=== PATIENT | female | born 1980 | race Caucasian/White ===

== ENCOUNTER → 2024-03-01 10:39 | Outpatient (REF) | payer BC, SELFPAY | LOC: CPAP 10:39 | PROVIDERS: ATTENDING PHYSICIAN Nurse Practitioner Family | DX: Z34.90 Encounter for supervision of normal pregnancy, unspecified, unspecified trimester (principal); Z12.4 Encounter for screening for malignant neoplasm of cervix; Z11.3 Encounter for screening for infections with a predominantly sexual mode of transmission; Z01.419 Encounter for gynecological examination (general) (routine) without abnormal findings | CPT/HCPCS: 87491; 87591; 87624; G0123 ==

== ENCOUNTER → 2024-03-15 11:19 | Outpatient (REF) | payer BC, SELFPAY | LOC: PNTC 11:19 | PROVIDERS: ATTENDING PHYSICIAN Obstetrics & Gynecology | DX: Z36.0 Encounter for antenatal screening for chromosomal anomalies (principal); Z36.82 Encounter for antenatal screening for nuchal translucency | CPT/HCPCS: 76801; 76813 ==

== ENCOUNTER → 2024-04-07 10:17 | Outpatient (REF) | payer BC, SELFPAY ==
[2024-04-07 11:50] LABS: % Basophils 0.3 % (0-2); % Eosinophils 2.4 % (0-6); % Immature Granulocytes 0.3 % (0-0.5); % Lymphocytes 18.8 % (20.5-51.1); % Monocytes 8.3 % (1.7-9.3); % Neutrophils 69.9 % (42.2-75.2); Absolute Eosinophils 0.2 10^3/uL (0-0.7); Absolute Lymphocytes 1.4 10^3/uL (1.2-3.4); Absolute Monocytes 0.6 10^3/uL (0.1-0.6); Hematocrit 35.7 % (37.0-47.0); Hemoglobin 11.9 g/dL (12.0-16.0); Mean Corp Hgb Conc. 33.3 g/dL (33.0-37.0); Mean Corpuscular Hgb 29.8 pg (27.0-31.0); Mean Corpuscular Volume 89.3 fL (81.0-99.0); Mean Platelet Volume 10.3 fL (7.4-10.4); Nucleated Red Blood Cells % 0 %; Platelet Count 233 10^3/uL (130-400); Red Cell Dist. Width 12.7 % (11.5-14.5); White Blood Cell Count 7.2 10^3/uL (4.8-10.8)
[2024-04-07 11:56] LABS: Urine Albumin Negative (Neg - Trace); Urine Bilirubin Negative (Negative); Urine Character Slightly Cloudy (Clear); Urine Color Yellow; Urine Glucose Negative (Negative); Urine Ketone Trace (Negative); Urine Leukocyte Trace (Negative); Urine Nitrite Negative (Negative); Urine Occult Blood Negative (Negative); Urine Urobilinogen Negative (Neg - 1+)
[2024-04-07 12:06] LABS: Urine Squamous Cell >30 /LPF (Few)
[2024-04-07 12:08] LABS: Urine Bacteria Few (Negative); Urine Red Blood Cell 0-2 /HPF (0-2); Urine White Cell 0-2 /HPF (0-5)
[2024-04-07 12:33] LABS: 1 Hour after 50gm 113 mg/dl
[2024-04-08 18:57] LABS: Hepatitis B Surface Antigen Negative (Negative)
[2024-04-08 19:15] LABS: Hepatitis C Antibody Negative (Negative)
[2024-04-08 19:35] LABS: Rubella Positive
[2024-04-09 14:39] LABS: Syphilis/T. pallidum Ab Reflex Negative (Negative)
== END ==
LOC: REG 10:17
PROVIDERS: ATTENDING PHYSICIAN Obstetrics & Gynecology; FAMILY PHYSICIAN Nurse Practitioner
DX: Z34.90 Encounter for supervision of normal pregnancy, unspecified, unspecified trimester (principal)
CPT/HCPCS: 36415; 80055; 81003; 81015; 82950; 86803; 86850; 86900; 86901; 87086

== ENCOUNTER → 2024-04-13 10:18 | Outpatient (REF) | payer BC, SELFPAY | LOC: PNTC 10:18 | PROVIDERS: ATTENDING PHYSICIAN Obstetrics & Gynecology | DX: Z31.83 Encounter for assisted reproductive fertility procedure cycle (principal); O99.210 Obesity complicating pregnancy, unspecified trimester; T43.22 Poisoning by, adverse effect of and underdosing of selective serotonin reuptake inhibitors | CPT/HCPCS: 76805 ==

== ENCOUNTER → 2024-05-27 09:33 | Outpatient (REF) | payer BC, SELFPAY ==
[2024-05-27 12:21] LABS: % Basophils 0.3 % (0-2); % Eosinophils 2.1 % (0-6); % Immature Granulocytes 0.9 % (0-0.5); % Lymphocytes 18.8 % (20.5-51.1); % Neutrophils 69.9 % (42.2-75.2); Absolute Eosinophils 0.2 10^3/uL (0-0.7); Absolute Immature Granulocytes 0.1 10^3/uL (0-0.05); Absolute Lymphocytes 1.7 10^3/uL (1.2-3.4); Absolute Monocytes 0.7 10^3/uL (0.1-0.6); Absolute Neutrophils 6.3 10^3/uL (1.4-6.5); Hematocrit 31.5 % (37.0-47.0); Hemoglobin 10.8 g/dL (12.0-16.0); Mean Corp Hgb Conc. 34.3 g/dL (33.0-37.0); Mean Corpuscular Hgb 30.3 pg (27.0-31.0); Mean Corpuscular Volume 88.2 fL (81.0-99.0); Mean Platelet Volume 10.8 fL (7.4-10.4); Nucleated Red Blood Cells % 0 %; Platelet Count 203 10^3/uL (130-400); Red Blood Cell Count 3.57 10^6/uL (4.20-5.40); Red Cell Dist. Width 13.2 % (11.5-14.5)
[2024-05-27 13:22] LABS: ALT (SGPT) < 10 U/L (0-35); AST (SGOT) 17 U/L (14-36); Albumin 3.4 g/dl (3.5-5.0); Alkaline Phosphatase 58 U/L (38-126); Blood Urea Nitrogen 7 mg/dl (7-17); Calcium 8.8 mg/dl (8.4-10.2); Carbon Dioxide 25 mmol/L (22-30); Chloride 107 mmol/L (98-107); Glucose 87 mg/dl (70-99); HDL Cholesterol 77 mg/dl; LDL Cholesterol, Calculated 168 mg/dl; Sodium 133 mmol/L (135-145); Total Bilirubin 0.4 mg/dl (0.2-1.3); Total Cholesterol 282 mg/dl (50-199); Total Protein 6.1 g/dl (6.3-8.2); Triglyceride 185 mg/dl (10-149); Very Low Density Lipoprotein 37 mg/dl (0-30); eGFR > 60.00
[2024-05-27 13:53] LABS: TSH Reflex To Free T4 2.16 uIU/ml (0.47-4.68)
[2024-05-30 10:11] LABS: AFP Multiple of Median (MoM) 0.66; Dating LMP CONF by US; Family Neural Tube Defect Hx No; Insulin Req Maternal Diabetes No; Maternal Age at Delivery 38.8 yr; Maternal Race Nonblack; Maternal Screen Interpretation Screen Neg; Maternal Weight 192.0 lbs.; Number of Fetuses Singleton; Patient's AFP Concentration 46 ng/mL; Smoking No
== END ==
LOC: HWLAB 09:33
PROVIDERS: ATTENDING PHYSICIAN Obstetrics & Gynecology; FAMILY PHYSICIAN Nurse Practitioner
DX: Z00.01 Encounter for general adult medical examination with abnormal findings (principal)
CPT/HCPCS: 36415; 80053; 80061; 82105; 84443; 85025

== ENCOUNTER → 2024-06-08 09:53 | Outpatient (REF) | payer BC, SELFPAY | LOC: PNTC 09:53 | PROVIDERS: ATTENDING PHYSICIAN Obstetrics & Gynecology | DX: O09.529 Supervision of elderly multigravida, unspecified trimester (principal); O09.819 Supervision of pregnancy resulting from assisted reproductive technology, unspecified trimester; O99.210 Obesity complicating pregnancy, unspecified trimester | CPT/HCPCS: 76816 ==

== ENCOUNTER → 2024-07-03 02:31 | Outpatient (REF) | payer BC, SELFPAY ==
[2024-07-03 05:43] LABS: Hematocrit 30.1 % (37.0-47.0); Hemoglobin 10.1 g/dL (12.0-16.0); Mean Corp Hgb Conc. 33.6 g/dL (33.0-37.0); Mean Corpuscular Hgb 29.6 pg (27.0-31.0); Mean Corpuscular Volume 88.3 fL (81.0-99.0); Platelet Count 204 10^3/uL (130-400); Red Blood Cell Count 3.41 10^6/uL (4.20-5.40); White Blood Cell Count 8.6 10^3/uL (4.8-10.8)
[2024-07-03 05:53] LABS: 1 Hour after 50gm 131 mg/dl
[2024-07-06 15:12] LABS: Syphilis/T. pallidum Ab Reflex Negative (Negative)
== END ==
LOC: REG 02:31
PROVIDERS: ATTENDING PHYSICIAN Obstetrics & Gynecology
DX: O09.522 Supervision of elderly multigravida, second trimester (principal)
CPT/HCPCS: 82950; 85027; 86780

== ENCOUNTER → 2024-07-06 11:56 | Outpatient (REF) | payer BC, SELFPAY | LOC: PNTC 11:56 | PROVIDERS: ATTENDING PHYSICIAN Obstetrics & Gynecology | DX: O99.210 Obesity complicating pregnancy, unspecified trimester (principal); O09.819 Supervision of pregnancy resulting from assisted reproductive technology, unspecified trimester; O09.519 Supervision of elderly primigravida, unspecified trimester; O99.320 Drug use complicating pregnancy, unspecified trimester | CPT/HCPCS: 76816 ==

== ENCOUNTER → 2024-08-03 09:58 | Outpatient (REF) | payer BC, SELFPAY | LOC: PNTC 09:58 | PROVIDERS: ATTENDING PHYSICIAN Obstetrics & Gynecology | DX: O09.519 Supervision of elderly primigravida, unspecified trimester (principal); O09.819 Supervision of pregnancy resulting from assisted reproductive technology, unspecified trimester; O99.210 Obesity complicating pregnancy, unspecified trimester; O99.320 Drug use complicating pregnancy, unspecified trimester | CPT/HCPCS: 76816 ==

== ENCOUNTER → 2024-08-17 10:35 | Outpatient (REF) | payer BC, SELFPAY | LOC: PNTC 10:35 | PROVIDERS: ATTENDING PHYSICIAN Obstetrics & Gynecology | DX: O09.519 Supervision of elderly primigravida, unspecified trimester (principal); O09.819 Supervision of pregnancy resulting from assisted reproductive technology, unspecified trimester; O99.210 Obesity complicating pregnancy, unspecified trimester; O99.320 Drug use complicating pregnancy, unspecified trimester | CPT/HCPCS: 59025; 76815 ==

== ENCOUNTER → 2024-08-24 09:49 | Outpatient (REF) | payer BC, SELFPAY | LOC: PNTC 09:49 | PROVIDERS: ATTENDING PHYSICIAN Obstetrics & Gynecology | DX: O09.519 Supervision of elderly primigravida, unspecified trimester (principal); O99.210 Obesity complicating pregnancy, unspecified trimester; O99.320 Drug use complicating pregnancy, unspecified trimester; O09.819 Supervision of pregnancy resulting from assisted reproductive technology, unspecified trimester | CPT/HCPCS: 76815 ==

== ENCOUNTER → 2024-08-31 09:40 | Outpatient (REF) | payer BC, SELFPAY | LOC: PNTC 09:40 | PROVIDERS: ATTENDING PHYSICIAN Obstetrics & Gynecology | DX: O09.519 Supervision of elderly primigravida, unspecified trimester (principal); O99.210 Obesity complicating pregnancy, unspecified trimester; O09.819 Supervision of pregnancy resulting from assisted reproductive technology, unspecified trimester; O99.320 Drug use complicating pregnancy, unspecified trimester | CPT/HCPCS: 59025; 76816 ==

== ENCOUNTER → 2024-09-02 10:47 | Outpatient (REF) | payer BC, SELFPAY | LOC: CPAP 10:47 | PROVIDERS: ATTENDING PHYSICIAN Obstetrics & Gynecology | DX: Z36.85 Encounter for antenatal screening for Streptococcus B (principal) | CPT/HCPCS: 87070 ==

== ENCOUNTER → 2024-09-07 10:05 | Outpatient (REF) | payer BC, SELFPAY | LOC: PNTC 10:05 | PROVIDERS: ATTENDING PHYSICIAN Obstetrics & Gynecology | DX: O09.529 Supervision of elderly multigravida, unspecified trimester (principal); O09.819 Supervision of pregnancy resulting from assisted reproductive technology, unspecified trimester; O99.210 Obesity complicating pregnancy, unspecified trimester; O35.5XX0 Maternal care for (suspected) damage to fetus by drugs, not applicable or unspecified | CPT/HCPCS: 59025; 76815 ==

== ENCOUNTER → 2024-09-13 12:18 | Outpatient (REF) | payer BC, SELFPAY | LOC: PNTC 12:18 | PROVIDERS: ATTENDING PHYSICIAN Obstetrics & Gynecology | DX: O09.519 Supervision of elderly primigravida, unspecified trimester (principal); O09.819 Supervision of pregnancy resulting from assisted reproductive technology, unspecified trimester; O99.210 Obesity complicating pregnancy, unspecified trimester; O99.320 Drug use complicating pregnancy, unspecified trimester | CPT/HCPCS: 59025; 76815 ==

== ENCOUNTER 2024-09-14 03:38 | Inpatient (IN) | payer BC, SELFPAY ==
[2024-09-14 03:58] VITALS: BMI 36.5
[2024-09-14] MEDS: LR 1000 IV ×2 (04:00→04:48)
[2024-09-14 04:17] LABS: Hematocrit 30.6 % (37.0-47.0); Hemoglobin 9.8 g/dL (12.0-16.0); Mean Corpuscular Hgb 25.7 pg (27.0-31.0); Mean Corpuscular Volume 80.3 fL (81.0-99.0); Mean Platelet Volume 11.3 fL (7.4-10.4); Platelet Count 205 10^3/uL (130-400); Red Blood Cell Count 3.81 10^6/uL (4.20-5.40); Red Cell Dist. Width 14.9 % (11.5-14.5)
[2024-09-14] MEDS: TYLENOL 1000 MG PO (04:58)
[2024-09-14] MEDS: BICITRA 30 ML PO (04:59)
[2024-09-14] MEDS: ANCEF 10 IV (05:00)
[2024-09-14] MEDS: ZITHROMAX INFUSION 250 IV (08:00)
[2024-09-14] MEDS: TORADOL 15 MG IV ×3 (08:05→19:43)
[2024-09-14] MEDS: PRENATAL PLUS PO (09:36)
[2024-09-14] MEDS: PITOCIN 30 UNITS/NSS 500 ML IV (10:15)
[2024-09-14] MEDS: FLUSH (NSS) 3 FLUSH IV (19:44)
[2024-09-14] MEDS: LEXAPRO 20 MG PO (21:57)
[2024-09-15] MEDS: TORADOL 15 MG IV ×2 (02:01→10:53)
[2024-09-15] MEDS: FLUSH (NSS) 3 FLUSH IV (02:03)
[2024-09-15] MEDS: TYLENOL 650 MG PO ×3 (05:16→21:13)
[2024-09-15 06:33] LABS: Hematocrit 21.9 % (37.0-47.0); Hemoglobin 6.9 g/dL (12.0-16.0); Mean Corp Hgb Conc. 31.5 g/dL (33.0-37.0); Mean Corpuscular Hgb 25.5 pg (27.0-31.0); Mean Corpuscular Volume 80.8 fL (81.0-99.0); Mean Platelet Volume 11.3 fL (7.4-10.4); Platelet Count 141 10^3/uL (130-400); Red Blood Cell Count 2.71 10^6/uL (4.20-5.40); Red Cell Dist. Width 15.2 % (11.5-14.5)
--- NOTE | 2024-09-15 07:15 | W.PN.ANS.POP ---
Anesthesia Post Operative
- Anesthesia Post Op Note
Vital Signs Stable-See Nursing Note: Yes
Airway Patent: Yes
Adequate Pain Control: Yes
Change in Mental Status: No
Current Postoperative Nausea & Vomiting: No
Anesthesia Complications: No
General Anesthetic Recall: No (n/a)
Unplanned Admission: No
Post Op Hydration Adequate: Yes
[2024-09-15 07:30] VITALS: BP 102/51
[2024-09-15 07:50] VITALS: BP 102/60
[2024-09-15] MEDS: SENOKOT-S 1 TABLET PO (08:33)
[2024-09-15] MEDS: PRENATAL PLUS 1 TABLET PO (08:33)
[2024-09-15 10:55] VITALS: BP 103/42
[2024-09-15] MEDS: MOTRIN 600 MG PO ×2 (15:43→22:07)
[2024-09-15 15:58] LABS: Hematocrit 26.1 % (37.0-47.0); Hemoglobin 8.6 g/dL (12.0-16.0); Mean Corpuscular Hgb 26.8 pg (27.0-31.0); Mean Corpuscular Volume 81.3 fL (81.0-99.0); Mean Platelet Volume 11.4 fL (7.4-10.4); Platelet Count 179 10^3/uL (130-400); Red Blood Cell Count 3.21 10^6/uL (4.20-5.40); Red Cell Dist. Width 15.2 % (11.5-14.5); White Blood Cell Count 11.1 10^3/uL (4.8-10.8)
[2024-09-15] MEDS: LEXAPRO 20 MG PO (21:14)
[2024-09-15] MEDS: MYLICON 80 MG PO (21:14)
[2024-09-16] MEDS: TYLENOL 650 MG PO ×2 (04:44→08:40)
[2024-09-16] MEDS: MOTRIN 600 MG PO (04:44)
[2024-09-16 05:03] LABS: Hematocrit 24.9 % (37.0-47.0); Mean Corp Hgb Conc. 32.1 g/dL (33.0-37.0); Mean Corpuscular Hgb 26.1 pg (27.0-31.0); Mean Corpuscular Volume 81.4 fL (81.0-99.0); Mean Platelet Volume 11.1 fL (7.4-10.4); Platelet Count 168 10^3/uL (130-400); Red Blood Cell Count 3.06 10^6/uL (4.20-5.40); Red Cell Dist. Width 15.4 % (11.5-14.5); White Blood Cell Count 8.9 10^3/uL (4.8-10.8)
[2024-09-16] MEDS: MYLICON 80 MG PO (08:40)
[2024-09-16] MEDS: SENOKOT-S 1 TABLET PO (08:41)
--- NOTE | 2024-09-16 14:12 | W.DS.TRANS ---
DC Summary - Linker Up
-
Discharge Instructions:
Discharge Diagnosis/Procedures section
Instructions:
Stand-Alone Forms: LDRP Delivery
Changes to Home Medications: No
Discharge Medications:
DC Medications w/original date entered in [employer]
escitalopram oxalate 20 mg tablet 20 mg PO HS Mental Health/Anxiety 03/22/22
vit no.95-ferrous fumarate 28 mg-folic acid 800 mcg tablet () 1 ea PO DAILY Supplement 03/22/22
acetaminophen 325 mg tablet 650 mg (2 x 325 mg) PO Q4HPRN PRN mild pain #0 tabs 09/16/24
calcium carbonate (Calcium Antacid) 400 mg (2 x 200 mg calcium (500 mg)) PO Q6HPRN PRN indigestion #0 tabs 09/16/24
ibuprofen 600 mg tablet 600 mg PO Q6HPRN PRN cramps #40 tabs 09/16/24
sennosides 8.6 mg-docusate sodium 50 mg tablet 1 tab PO DAILYPRN PRN constipation #0 tabs 09/16/24
simethicone 80 mg chewable tablet 80 mg PO TIDPRN PRN flatulence #0 tabs 09/16/24
Home Medication Changes
Pending Results: No
Total time spent discharging patient (in min): 20
[2024-09-17 12:22] LABS: Syphilis/T. pallidum Ab Reflex Negative (Negative)
== END 2024-09-16 13:56 | disposition home or self-care (01) | DRG 788 ==
LOC: LDRP 03:38
PROVIDERS: Student in an Organized Health Care Education/Training Program; ADMITTING PHYSICIAN Obstetrics & Gynecology
PROC: 10D00Z1 Extraction of Products of Conception, Low, Open Approach (ICD-10-PCS; 2024-09-14)
PROC: 30233N1 Transfusion of Nonautologous Red Blood Cells into Peripheral Vein, Percutaneous Approach (ICD-10-PCS; 2024-09-15)
DX: O34.211 Maternal care for low transverse scar from previous cesarean delivery (principal); N85.8 Other specified noninflammatory disorders of uterus; O77.0 Labor and delivery complicated by meconium in amniotic fluid; O34.13 Maternal care for benign tumor of corpus uteri, third trimester; D25.2 Subserosal leiomyoma of uterus; Z3A.38 38 weeks gestation of pregnancy; Z37.0 Single live birth
CPT/HCPCS: 88307; 36415; 85027; 86780; 86850; 86900; 86901; 86920; P9016

== ENCOUNTER → 2025-05-18 13:21 | Outpatient (REF) | payer BC, SELFPAY | LOC: WDC 13:21 | PROVIDERS: ATTENDING PHYSICIAN Obstetrics & Gynecology | DX: Z12.31 Encounter for screening mammogram for malignant neoplasm of breast (principal) | CPT/HCPCS: 77063; 77067 ==

== ENCOUNTER → 2025-05-25 11:12 | Outpatient (REF) | payer BC, SELFPAY ==
[2025-05-25 11:47] LABS: Hematocrit 41.7 % (37.0-47.0); Hemoglobin 13.7 g/dL (12.0-16.0); Mean Corp Hgb Conc. 32.9 g/dL (33.0-37.0); Mean Corpuscular Volume 86.5 fL (81.0-99.0); Nucleated Red Blood Cells % 0 %; Platelet Count 261 10^3/uL (130-400); Red Cell Dist. Width 12.9 % (11.5-14.5)
[2025-05-25 11:56] LABS: ALT (SGPT) 12 U/L (0-35); AST (SGOT) 18 U/L (14-36); Albumin 4.8 g/dl (3.5-5.0); Alkaline Phosphatase 54 U/L (38-126); Blood Urea Nitrogen 12 mg/dl (7-17); Calcium 9.2 mg/dl (8.4-10.2); Carbon Dioxide 25 mmol/L (22-30); Chloride 107 mmol/L (98-107); Glucose 95 mg/dl (70-99); HDL Cholesterol 61 mg/dl; LDL Cholesterol, Calculated 180 mg/dl; Potassium 4.0 mmol/L (3.5-5.1); Sodium 141 mmol/L (135-145); Total Protein 7.9 g/dl (6.3-8.2); Very Low Density Lipoprotein 24 mg/dl (0-30); eGFR > 60.00
== END ==
LOC: CLAB 11:12
DX: Z00.01 Encounter for general adult medical examination with abnormal findings (principal)
CPT/HCPCS: 80053; 80061; 84443; 85025

== ENCOUNTER 2025-06-26 22:04 | Emergency (ER) | payer BC, SELFPAY ==
[2025-06-26 22:07] VITALS: BP 116/60; BMI 33.2
[2025-06-26 22:34] LABS: Hematocrit 35.6 % (37.0-47.0); Hemoglobin 12.2 g/dL (12.0-16.0); Mean Corp Hgb Conc. 34.3 g/dL (33.0-37.0); Mean Corpuscular Volume 83.4 fL (81.0-99.0); Nucleated Red Blood Cells % 0 %; Platelet Count 220 10^3/uL (130-400); Red Cell Dist. Width 12.6 % (11.5-14.5)
[2025-06-26 22:52] LABS: ALT (SGPT) 26 U/L (0-35); AST (SGOT) 59 U/L (14-36); Albumin 4.2 g/dl (3.5-5.0); Alkaline Phosphatase 79 U/L (38-126); Blood Urea Nitrogen 13 mg/dl (7-17); Calcium 9.0 mg/dl (8.4-10.2); Carbon Dioxide 27 mmol/L (22-30); Chloride 107 mmol/L (98-107); Estimated Creatinine Clearance 105 ml/min; Glucose 108 mg/dl (70-99); Potassium 3.9 mmol/L (3.5-5.1); Sodium 138 mmol/L (135-145); Total Protein 6.8 g/dl (6.3-8.2); eGFR > 60.00
--- NOTE | 2025-06-27 00:03 | ED.GENMED ---
History of Present Illness
General
Chief Complaint: Flank Pain
Source: patient
Exam Limitations: none
Time Seen by Provider: 06/26/25 23:48
Nursing documentation reviewed up to this point in time: agreed with
History of Present Illness
History of Present Illness:
Note:
CHIEF COMPLAINT(S)
Abdominal pain.
HISTORY OF PRESENT ILLNESS
The patient is a 44-year-old female with no pmh who presenting with a complaint of abdominal pain. This has been going on intermittently for the past for months but became more prominent today. This pain began in the back and radiated around to the
front, causing a sensation of diaphragmatic constriction, impeding deep breaths. The patient reports a history of similar episodes previously described as muscle spasms, but today's episode was more severe, accompanied by sweating and a need to sit
down. 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 This episode started approximately one hour after consuming egg whites and turkey sausage. The patient feels well now and is not requesting any pain medication. The patients
family physician recommended an antacid previously, but this did not alleviate her upper abdominal pain. No history of kidney stones, bladder pain, or significant urinary symptoms. The patient reports an increase in discomfort post meals and
describes the pain as a dull ache has had intermittent epigastric discomfort. No fevers or chills. No nausea or vomiting. No significant changes in pain when pressure is applied or by changing position. No vomiting, leg swelling, or recent prolonged
travel by car or plane.
SOCIAL DETERMINANTS OF HEALTH
No smoking history
No daily NSAID use
PHYSICAL EXAM
General: Patient is well appearing and in no acute distress; non-toxic
Skin: Warm and dry, no rashes or lesions
Head: Normocephalic, atraumatic
Eyes: Sclera non-icteric. EOMs intact.
Cardiac: Regular rate and rhythm, no murmurs
Peripheral Vascular: No lower extremity swelling or edema
Pulm: Normal respiratory effort, no wheezes, rales, or rhonchi
Abdomen: Abdomen soft, minimal tenderness to palpation in the RUQ no guarding negative matias's sign, no palpable abdominal mass; no CVA tenderness
Neuro: CN II-XII intact, no focal neurologic deficits.
Psychiatric: Appropriate mood and affect.
PLAN
- Consideration for a CT scan to evaluate for gallbladder issues or possible stone passage, given the pains history and character.
- Investigate potential musculoskeletal causes since intense muscle spasms have been a hallmark of the patients past episodes.
DIFFERENTIAL DIAGNOSIS
The Differential Diagnosis includes, in no particular order and is not limited to:
- Gallstones
- Gastroesophageal reflux disease (GERD)
- Gastritis
- Peptic ulcer disease
- Pancreatitis
- Biliary colic
- Musculoskeletal spasm
- Splenic flexure syndrome
- Right-sided diverticulitis
- Renal stones
SUMMARY OF ENCOUNTER
The patient presented with abdominal pain originating from the back and moving to the front, described as constricting and spasmodic, peaking in intensity postprandially. The pain was significant enough to involve her colleagues due to concerns for
her wellbeing, prompting an acute evaluation. The episode resolved after approximately 45 minutes, with ongoing dull discomfort at the time of consultation. Evaluation includes the prioritization of ruling out gallbladder pathology through imaging,
considering the pattern of pain presentation post eating.
CHART REVIEW
No prior ER visits for similar symptoms, discharge summaries in [facility] present for C-sections
Reviewed external medical summary from May 19, 2025 patient seen for well adult exam
MEDICAL DECISION MAKING
- Number and Complexity of Problems Addressed: Chronic conditions affecting care includes the intermittent abdominal pain which has not been fully evaluated despite recurrent episodes.
- Data:
- Category 1: Consideration for abdominal CT scan in light of potential gallbladder and stone passage etiologies.
- Category 3: Preliminary discussion and arrangement for imaging studies to capture current pain etiology and exclude significant pathologies.
44-year-old female with no past medical history presents to the ER today with concerns of transient episode of right upper quadrant pain. It started during her shift. Patient reports that she has had this pain intermittently for the past few
months but today became more severe. Exam she is well-appearing in no acute distress. She is afebrile. She is in no discomfort at this time and on exam she has minimal tenderness negative Matias sign. She is not requesting any medication for
pain. Labs reviewed, no leukocytosis. CMP unremarkable no elevation of total bilirubin, ALT normal, 8 ST mildly elevated at 59. Urinalysis shows a lot of blood however patient is on her menstrual cycle currently. No signs concerning for
infection. Patient went for CAT scan which showed gallstones with mild pericholecystic fluid and thickening. Considering patient's pain is minimal now, patient feeling better without intervention, blood work unremarkable, patient afebrile, suspect
biliary colic doubt acute cholecystitis. Did offer admission for surgical consultation and pain management however patient request that she feels well to go home and will call general surgery as outpatient. Discussed strict return precautions.
Patient stable for discharge.
Review of Systems
Review of Systems
All Other Systems: ROS reviewed and negative except as documented in HPI and ROS
Phy Exam
Physical Exam
Physical Exam:
see hpi
Course
Orders/Labs/Results
Orders:
Orders
06/26/25 22:26
Complete Blood Count/With Diff Urgent
Comprehensive Metabolic Panel Urgent
Lipase Urgent
Comment: ADDON
06/27/25 00:22
CT Abd/pelvis W Iv Cont Urgent
Comment:
Reason For Exam: right sided abdominal pain, flank pain
06/27/25 00:23
Add On- LAB Urgent
Tests Added?: lipase
06/27/25 00:35
Test Result ONCE
06/27/25 00:37
, Urine Qualitative Screen [HCG, Urine Qualitative Screen] Urgent
Date Specimen was Collected: 06/27/25
Time Specimen was Collected: 00:35
Urinalysis Reflex To Culture Urgent
Date Specimen was Collected: 06/27/25
Time Specimen was Collected: 00:35
Urine Microscopic Reflex Cult Urgent
Urine Culture Urgent
ORLIN Source: U
Specimen Description:
Date Specimen was Collected: 06/27/25
Time Specimen was Collected: 00:35
Abnormal Lab Results
06/26/25 06/27/25
22:26 00:37
Hct 35.6 L %
(37.0-47.0)
MPV 10.6 H fL
(7.4-10.4)
Glucose 108 H mg/dl
(70-99)
AST 59 H U/L
(14-36)
Urine Ketones 1+ A
(Negative)
Ur Occult Blood Reflex 4+ A
(Negative)
Leukocyte Esterase Rfl 1+ A
(Negative)
Urine RBC >100 A /HPF
(0-2)
Urine Albumin (Reflex) 2+ A
(Neg - Trace)
06/26/25 22:26
06/26/25 22:26
Vital Signs
Initial and Last Documented VS:
Initial Vital Signs
Temp Pulse Resp BP Pulse Ox
97.8 F 71 16 116/60 98
06/26/25 22:07 06/26/25 22:07 06/26/25 22:07 06/26/25 22:07 06/26/25 22:07
Last Documented Vital Signs
Temp Pulse Resp BP Pulse Ox
97.9 F 87 18 115/59 100
06/27/25 03:28 06/27/25 01:57 06/27/25 01:57 06/27/25 01:57 06/27/25 01:57
*Pulse Oximetry
SaO2: 98
Oxygen Mode of Delivery: Room air
Patient hypoxic: no
*Critical Care Note
Total Time (30-74mins, 75-104mins- exclusive of procedures): Not Applicable
ED Attending Note
-
Portions of this chart may have been created with voice recognition software.� Occasional wrong word or��sound alike� substitutions may have occurred due to the inherent limitations of voice recognition software.
Discharge Plan
Departure
Patient Disposition: Home (Routine Discharge)
Date of Disposition: 06/27/25
Time of Disposition: 03:19
Patient with high blood pressure during this ER visit?: No
Condition: Good
Discharge Problem:
Biliary colic
Instructions: Gallstones (DC)
Prescriptions:
No Action
escitalopram oxalate 20 MG tablet
20 mg PO HS
PNV no.95-ferrous fumarate-FA [] 1 EACH tablet
1 ea PO DAILY
acetaminophen 325 mg Tablet
650 mg PO Q4HPRN PRN (Reason: mild pain) Qty: 0 0RF
sennosides-docusate sodium 8.6-50 mg Tablet
1 tab PO DAILYPRN PRN (Reason: constipation) Qty: 0 0RF
calcium carbonate [Calcium Antacid] 200 mg calcium (500 mg) Tablet,Chewable
400 mg PO Q6HPRN PRN (Reason: indigestion) Qty: 0 0RF
ibuprofen 600 mg Tablet
600 mg PO Q6HPRN PRN (Reason: cramps) Qty: 40 0RF
simethicone 80 mg Tablet,Chewable
80 mg PO TIDPRN PRN (Reason: flatulence) Qty: 0 0RF
Referrals:
Lowell Islas CRNP [Family Provider]
Eddy Pressley MD [Active, Surgical] - Call in 1-3 days for appt
Activity Restrictions/Additional Instructions:
As discussed, your blood work is unremarkable. Please call the attached number to schedule follow-up with general surgery. Please continue to monitor your symptoms.
PLEASE RETURN TO THE ER SHOULD YOU DEVELOP ACUTE WORSENING OF YOUR SYMPTOMS, RETURN OF SEVERE RIGHT UPPER QUADRANT PAIN, INTRACTABLE NAUSEA OR VOMITING, YELLOWING OF THE EYES OR SKIN, CHEST PAIN, SHORTNESS OF BREATH, OR ANY OTHER SIGNS OR SYMPTOMS
RECENTLY.
Interventions
Interventions:
*Risk Screen - Suicide Last Done: 06/26/25 22:07
*General Assessment Last Done: 06/26/25 22:07
*Neglect/Abuse Screening Last Done: 06/26/25 22:07
*ED- Fall Risk Assessment Last Done: 06/26/25 22:07
*ED COVID-19 Vaccine History Last Done: 06/26/25 22:07
*Nursing Disposition Last Done: 06/27/25 03:39
OQ-Kzuhzt-Fbifenudab Assessment Last Done: 06/26/25 22:30
ED-Female Genitourinary Assessment Last Done: 06/26/25 22:30
Discharge Date and Time
Discharge Date/Time: 06/27/25 03:40
Print Language: WALLISIAN
[2025-06-27 00:56] LABS: Urine Character Cloudy (Clear)
[2025-06-27 00:59] LABS: HCG, Urine Qualitative Screen Negative
[2025-06-27 01:02] LABS: Lipase 143 U/L (23-300)
[2025-06-27 01:16] LABS: Urine Red Blood Cell >100 /HPF (0-2)
[2025-06-27 01:57] VITALS: BP 115/59
== END 2025-06-27 03:40 | disposition home or self-care (01) ==
LOC: EMR 22:04
PROVIDERS: Emergency Medicine; Physician Assistant; EMERGENCY PHYSICIAN Emergency Medicine
DX: K80.50 Calculus of bile duct without cholangitis or cholecystitis without obstruction (principal); K80.62 Calculus of gallbladder and bile duct with acute cholecystitis without obstruction
CPT/HCPCS: 99284; 74177; 80053; 81003; 81015; 81025; 83690; 85025; 87086; Q9967

== ENCOUNTER 2025-09-13 05:52 | Day surgery (SDC) | payer BC, SELFPAY ==
[2025-09-13] VITALS (16 sets, daily range): BP systolic 101–155; BP diastolic 43–73; BMI 31.9
[2025-09-13] MEDS: NORMOSOL-R/PLASMALYTE-A 1000 IV ×2 (06:35→11:47)
[2025-09-13] MEDS: TYLENOL 1000 MG PO (06:35)
--- NOTE | 2025-09-13 06:59 | W.SUR.PREOP ---
Pre-Operative Surgical Note
-
I have examined this patient prior to the performance of the scheduled procedure.
The patient's condition is unchanged from the time of the current History and
Physical and the patient is able to undergo the scheduled procedure.
--- NOTE | 2025-09-13 07:00 | HP.FOC2 ---
Focused History & Physical
Chief Complaint
HPI:
Chief Complaint: Right upper quadrant pain
HPI / Indication for Planned Procedure: This is a 44-year-old female who presents with biliary colic. Will plan for a laparoscopic cholecystectomy with cholangiogram.
Relevant Past Medical History: Negative
Relevant Social History: Negative
Relevant Family History: Negative
Relevant Past Surgical History: Positive for ()
Review of Systems
Review of Pertinent Systems: All Systems Negative
Medication
See Medication form for detailed medications: Yes
Medication List (including Herbals & OTC):
escitalopram oxalate 20 mg tablet 20 mg PO HS Mental Health/Anxiety 03/22/22
Medications Reviewed: Yes
Allergies and Reactions
Patient has Allergies: No
Noted Allergies and Reactions:
Allergy/AdvReac Type Severity Reaction Status Date / Time
No Known Allergies Allergy Verified 09/13/25 06:24
Pertinent Physical Exam
All Other Systems: Negative
Head/Neck: Normal
Diagnosis / Assessment
H This is a 44-year-old female who presents with biliary colic.
Plan / Procedure
Will plan for a laparoscopic cholecystectomy with cholangiogram.
Anesthesia/Sedation to be done by Anesthesia Provider: Yes
--- NOTE | 2025-09-13 09:20 | W.IMMPOSTOP ---
Surgical Immed Post Op Note
-
Primary Surgeon: Tom Hopkins MD
Assisting Surgeon: None
Pre-op Diagnosis: Biliary colic
Post-op Diagnosis: Chronic cholecystitis, choledocholithiasis
Procedure Performed: A laparoscopic cholecystectomy with cholangiogram
Anesthesia Type: General
Specimen / Cultures: Gallbladder and contents
Estimated Blood Loss: 11 cc
Complications: None
Operative Findings: Chronically inflamed gallbladder with adhesions over the anterior surface which were carefully lysed. A critical view of safety was obtained prior to a cholangiogram which demonstrated nonobstructing filling defects in the
distal CBD. The duct was ligated with a clip followed by 0 PDS Endoloop. The cystic duct in particular was dilated and chronically inflamed with stones in the duct.
POST OP PLAN:
Imaging: None
Labs: Routine AM
Diet: N.p.o. for now in case GI is able to take her for an ERCP today, if not okay for clears, n.p.o. at midnight.
Analgesia: Tylenol 650mg q6 Gladys, Dilaudid 0.5mg q2h PRN
Neuro/vascular checks: Per unit protocol
AC/AP: Hold Therapeutic AC, Ok for DVT PPx
Activity: Ad Danna
Wound/Incisions/Drains: Routine
Abx: None
Dispo: RNF
--- NOTE | 2025-09-13 09:24 | OR.RPT ---
Addendum entered and electronically signed by Tom Hopkins MD 09/13/25 10:04:
Under procedure details, after confirming hemostasis, Floseal was used in the fossa to ensure postoperative hemostasis.
Original Note:
Operative Report
Operative Report
Patient Name: Yee Beard
: 1980
Date of Operation: 09/13/2025
Preoperative Diagnosis: Biliary colic
Postoperative Diagnosis: Chronic cholecystitis, choledocholithiasis
Procedure(s):
Laparoscopic Cholecystectomy with Cholangiogram
Surgeon(s):
Dr. Hopkins
Financial Reporting Specialist(s):
KAROLINE Roger
Anesthesia: General
Estimated Blood Loss: 11 cc
Urine Output: None
Drains/Lines/Implants: None
Specimens:
1. Gallbladder and contents
HPI/Surgical Indications:
This is a 44-year-old female who presented to my office with multiple episodes of postprandial right upper quadrant pain. Exam, labs and imaging are consistent with biliary colic. Risks/Benefits/Alternatives were discussed at length, and the patient
consented to proceed with surgery.
Operative Findings: Chronically inflamed gallbladder with adhesions over the anterior surface which were carefully lysed. A critical view of safety was obtained prior to a cholangiogram which demonstrated nonobstructing filling defects in the
distal CBD. The duct was ligated with a clip followed by 0 PDS Endoloop. The cystic duct in particular was dilated and chronically inflamed with stones in the duct.
Procedure Description:
The patient was brought to the Operating Room and placed in the supine position with one arm tucked. Following uneventful induction of general endotracheal anesthesia, an orogastric tube was placed. The abdomen was prepped and draped in the usual
sterile fashion. A timeout was performed confirming the procedure, consent, and that IV antibiotics were infused and sequential compression devices were confirmed to be on. The abdomen was entered using a left subcostal Veress technique which
required a single pass followed by a 5 mm right upper quadrant Optiview trocar. Pneumoperitoneum to 15 mmHg pressure was obtained without difficulty and we confirmed that no injury had occurred during our entry. The patient was positioned in
reverse Trendelenberg and rotated with the right side up slightly. Two 5 mm trocars were then placed along the right subcostal margin, followed by a 12 mm port in the epigastrium. A locking grasping forceps was placed on the fundus of the
gallbladder where it was then retracted cephalad and to the right. Using appropriate grasping instruments, the peritoneum overlying the triangle of Calot was incised and extended superiorly on both the anterior and posterior gallbladder winn. The
lower third of the gallbladder was dissected off the cystic plate. The cystic triangle was dissected until 2 and only 2 structures were seen entering the gallbladder, thus a critical view of safety was achieved. The cystic artery was clipped with 5
mm titanium clips and divided. The cystic duct was clipped high on the gallbladder. A ductotomy was made however there was a stone in the cystic duct distally which was milked out. It was clear there was an additional stone in the cystic duct that
we could not dislodge so we elected to dissect further down the cystic duct and make a second ductotomy. A cholangiocatheter on an Calderón clamp was inserted into the cystic duct. A C-arm was draped and brought into the field. An intra-operative
cholangiogram was performed and was noted to have:
At least 2 small nonobstructing filling defects in the distal CBD
There was mild biliary dilation
Brisk flow of contrast into the duodenum
Otherwise, normal biliary anatomy
The catheter was then removed and the cystic duct was controlled with a clip followed by 0 PDS Endoloop. After ensuring both the artery and duct were divided, the gallbladder was freed from the liver using electrocautery. There was some spillage
of bile from our ductotomy, but no gross spillage of stones. The gallbladder bed was inspected and excellent hemostasis was obtained. The gallbladder was extracted through the 12 mm trocar site using an endocatch bag without dilating the port site.
The abdomen was again irrigated and excellent hemostasis was assured. All remaining trocars were then removed and the pneumoperitoneum was evacuated. The 12 mm trocar site was closed using 0 PDS suture. All trocar sites were closed at the skin
level using 4-0 Monocryl followed by Dermabond. Overall, the patient tolerated the procedure well and was taken to the Recovery Room postoperatively in stable condition.
I was the attending physician and performed the procedure with assistance of the PA above. They were required due to the complexity of the procedure. During the procedure they assisted with port placement, gallbladder retraction, holding camera and
skin closure. I was present for all portions of the case, excluding skin closure.
Tom Hopkins MD
[2025-09-13] MEDS: DILAUDID 0.25 MG IV (09:35)
[2025-09-13] MEDS: TYLENOL 650 MG PO ×4 (11:49→23:23)
--- NOTE | 2025-09-13 14:30 | CON.GI ---
Consultation
-
Date/Time Consultation Requested: 09/13/25, 09:14 AM
Date/Time Consultation Performed: 09/13/25, 02:30 PM
Requesting Provider: Tom Hopkins
Performing Provider: Wing Farley
Reason for Consultation: Choledocholithiasis
Medical History
Chief Complaint / HPI
Chief Complaint: Biliary Colic
History of Present Illness:
Ms. Beard is a pleasant 44-year-old female who initially presented as an outpatient for a planned laparoscopic cholecystectomy due to her biliary colic. Found to have a positive IOC for which GI has been consulted.
She underwent laparoscopic cholecystectomy with Dr. Tom Hopkins today on 09/13/2025. She was found to have chronic cholecystitis as well as choledocholithiasis during her IOC. Specifically, IOC revealed nonobstructing filling defects in the
distal CBD. She tolerated procedure well without any complications. Currently, she does admit mild right upper quadrant discomfort but without any nausea, vomiting or any other concerning symptoms from a GI standpoint. She has never had a prior
EGD or colonoscopy in the past. She is not on any antiplatelets or blood thinners. Discussed proceeding with an ERCP today for further management of choledocholithiasis with both patient and patient's mother at bedside.
No labs for review, personally reviewed intra-op cholangiogram.
Past Medical History
Past Medical History: Other (Biliary colic)
Past Surgical History: Other (Lap betsy)
Social History
Tobacco: Non-Smoker
Alcohol: Occasional
Drug: None
Personal:
Family History
Family History: Reviewed & Not Pertinent
Allergies / Home Medications
Allergy/AdvReac Type Severity Reaction Status Date / Time
No Known Allergies Allergy Verified 09/13/25 06:24
�Medication �Instructions �Recorded
escitalopram oxalate 20 mg tablet 20 mg PO HS Mental Health/Anxiety 03/22/22
acetaminophen 325 mg tablet 650 mg (2 x 325 mg) PO Q6HPRN PRN 09/13/25
mild pain #14 tabs
ibuprofen 600 mg tablet 600 mg PO Q6H PRN pain #14 tabs 09/13/25
oxycodone 5 mg tablet 5 mg PO Q6HPRN PRN 09/13/25
breakthrough/severe pain #8 tabs
Review of Systems
-
All other systems: A 12 pt ROS was Negative except as stated above in HPI
Vital Signs
Temp Pulse Resp BP Pulse Ox
98.2 F 109 16 107/65 97
09/13/25 13:38 09/13/25 13:38 09/13/25 13:38 09/13/25 13:38 09/13/25 13:38
Physical Exam
Exam
General: Well Developed, No Apparent Distress and Comfortable
HEENT: Anicteric and Moist Mucous Membranes
Respiratory: Other (Normal WOB on room air)
GI: Soft, Non Distended, Tender (Mild to moderate TTP in RUQ) and Other (Incisions with glue, c/d/i)
Musculoskeletal: No Edema
Skin: Warm
Neuro: Nonfocal/Grossly Intact
Psych: Calm
Results
Diagnostic Image Results: As above
Assessment / Plan
-
Ms. Beard is a pleasant 44-year-old female with no significant past medical history who initially presented as an outpatient for a planned laparoscopic cholecystectomy due to her biliary colic on 09/13/25. Found to have a positive IOC with
choledocholithiasis for which GI has been consulted.
#Biliary Colic s/p Lap Betsy 09/13/25
#Chronic Cholecystitis #Choledocholithiasis
#(+) IOC
Impression: Patient presenting today where she underwent lap betsy for biliary colic found to have chronic cholecystitis as well as choledocholithiasis with distal CBD stones found during her intraoperative cholangiogram. Currently, she is
recovering well from her recent lap betsy and would benefit from an ERCP with stone extraction for further management of her choledocholithiasis.
Recommendations:
- Keep NPO
- Plan for ERCP later this afternoon/early this evening for further management of patient's choledocholithiasis
- I discussed the benefits and risks at length with both patient and patient's mother including post ERCP pancreatitis, bleeding, infection, and/or perforation. Patient demonstrated understanding wishes to proceed with ERCP
- Await same-day ERCP report for additional findings and recommendations
- Would plan to give IV lactated Ringer's along with rectal indomethacin to further reduce risk of PEP
- Pain control and antiemetics as needed
- Rest of care as per primary team
Discussed with primary surgical team, Dr. Hopkins, earlier this AM. Please call with any questions or concerns.
Data Reviewed
-
Radiology: Image Personally Visualized and interpreted and Report Reviewed by me
Old Records: Reviewed
-
-
Thank you for consultation and allowing me to participate in the patient's care. Please call the stone dresser GI physician during the after hours with any questions or concerns.
--- NOTE | 2025-09-13 17:13 | W.PN.UPDATE ---
Update Note
Progress Note Update
Brief GI Update Note:
Patient's ERCP rescheduled to tomorrow, 09/14/25, due to schedule availability this evening. Okay for CLD this evening and keep NPO at MN.
[2025-09-13] MEDS: LOVENOX 40 MG SC (17:33)
[2025-09-13] MEDS: LEXAPRO 20 MG PO (21:11)
[2025-09-14] VITALS (7 sets, daily range): BP systolic 87–111; BP diastolic 56–73
[2025-09-14] MEDS: NORMOSOL-R/PLASMALYTE-A 1000 IV ×2 (00:50→20:25)
--- NOTE | 2025-09-14 03:30 | DOWNTIME ---
There was a [employer] Client Director Of Development Downtime on 09/14/2025 from 0100 to 09/14/2025 at 0255. Downtime documentation of patient's care, including medication administrations, has been reconciled in the electronic record per guidelines. Refer to the
patient's paper chart under the miscellaneous tab to see printed paper medication records and downtime forms.
[2025-09-14] MEDS: TYLENOL PO ×3 (04:00→19:36)
[2025-09-14] MEDS: DILAUDID 0.5 MG IV (06:34)
[2025-09-14 06:41] LABS: Hematocrit 34.7 % (37.0-47.0); Hemoglobin 11.2 g/dL (12.0-16.0); Mean Corp Hgb Conc. 32.3 g/dL (33.0-37.0); Mean Corpuscular Volume 89.0 fL (81.0-99.0); Platelet Count 211 10^3/uL (130-400); Red Cell Dist. Width 12.6 % (11.5-14.5)
[2025-09-14 06:47] LABS: ALT (SGPT) 315 U/L (0-35); AST (SGOT) 382 U/L (14-36); Albumin 3.3 g/dl (3.5-5.0); Alkaline Phosphatase 105 U/L (38-126); Blood Urea Nitrogen 6 mg/dl (7-17); Calcium 8.2 mg/dl (8.4-10.2); Carbon Dioxide 29 mmol/L (22-30); Chloride 109 mmol/L (98-107); Estimated Creatinine Clearance 103 ml/min; Glucose 86 mg/dl (70-99); Potassium 4.2 mmol/L (3.5-5.1); Sodium 140 mmol/L (135-145); Total Protein 6.0 g/dl (6.3-8.2); eGFR > 60.00
[2025-09-14] MEDS: REMOVE SCOPOLAMINE PATCH 1 PATCH REMOVE (08:37)
[2025-09-14] MEDS: TYLENOL 650 MG PO ×3 (08:39→23:07)
[2025-09-14] MEDS: PROTONIX 40 MG PO (08:39)
--- NOTE | 2025-09-14 08:50 | CM ---
Cm reviewed medical records. Patient confirmed demographics. Patient lives independently with and children. Patient does not have a history of VN, SNF or DME. Patient has medication coverage and uses [facility].
PLAN: Home with family, no needs noted.
--- NOTE | 2025-09-14 13:39 | W.PN.GS2 ---
Today's Communication / Plan
-
ERCP today
Assessment / Plan
-
This is a 44-year-old female postoperative day 1 from an elective laparoscopic cholecystectomy for biliary colic found to have chronic cholecystitis and choledocholithiasis on IOC.
Afebrile, vital signs stable. Exam reassuring.
LFTs slightly elevated as expected, bilirubin remains normal.
N.p.o. for ERCP today with GI.
Okay for regular diet postoperatively.
Will recheck labs in a.m.
If clinically well, anticipate discharge home tomorrow.
Time Spent
Total Time Spent with Patient (in minutes): 20
Subjective Data
-
Date of Service: September 14, 2025
Interval Events:
No acute events overnight. Slept well. Pain Controlled. Denies Nausea/Vomiting.
Objective Data
-
Intake and Output
09/13/25 09/14/25 09/15/25
06:59 06:59 06:59
Intake Total 184 / 1840
Balance 1840 / 1840
Intake:
Oral fluids 240 / 240
IV fluids (Total) 1600 / 1600
Normosol 200 / 200
Other:
Number of approximated MODERATE 2
amounts of urine
Vital Signs
Temp Pulse Resp BP Pulse Ox
99.1 F 76 20 111/66 96
09/14/25 07:00 09/14/25 07:00 09/14/25 07:00 09/14/25 07:00 09/14/25 07:00
Lab Results
09/14/25 05:42
09/14/25 05:42
Calcium 8.2 mg/dl (8.4-10.2) L 09/14/25 05:42
Total Bilirubin 0.7 mg/dl (0.2-1.3) 09/14/25 05:42
AST 382 U/L (14-36) H 09/14/25 05:42
ALT 315 U/L (0-35) H 09/14/25 05:42
Alkaline Phosphatase 105 U/L (38-126) 09/14/25 05:42
Total Protein 6.0 g/dl (6.3-8.2) L 09/14/25 05:42
Albumin 3.3 g/dl (3.5-5.0) L 09/14/25 05:42
Physical Exam
-
GENERAL/NEURO: Awake, Alert, no distress
CHEST: Unlabored breathing on RA
ABDOMEN: Soft, Non-Tender, Non-Distended, incisions clean dry and intact.
Patient has a vivar catheter: No
Patient has a central line: No
[2025-09-14] MEDS: NORMOSOL-R/PLASMALYTE-A IV (15:18)
--- NOTE | 2025-09-14 16:45 | PTCARENOTE ---
Pt returned from the ERCP AAOx3, sl drowsy. Pt denies pain or nausea. VSS, Pt is afebrile.
[2025-09-14] MEDS: LOVENOX 40 MG SC (19:29)
[2025-09-14] MEDS: LEXAPRO 20 MG PO (23:07)
[2025-09-15] MEDS: TYLENOL 650 MG PO ×3 (03:14→11:49)
[2025-09-15 03:49] VITALS: BP 101/68
--- NOTE | 2025-09-15 06:24 | W.PN.GI.CBS2 ---
Today's Communication / Plan
-
Doing well after recent ERCP, advance diet to regular diet as tolerated. LFTs down-trending. F/u with general surgery as outpatient. Will s/off, please recontact with questions/concerns.
Assessment / Plan
-
Ms. Beard is a pleasant 44-year-old female with no significant past medical history who initially presented as an outpatient for a planned laparoscopic cholecystectomy due to her biliary colic on 09/13/25. Found to have a positive IOC with
choledocholithiasis for which GI has been consulted.
#Biliary Colic s/p Lap Nick 09/13/25
#Chronic Cholecystitis #Choledocholithiasis
#(+) IOC
#S/p ERCP 09/14/25
Impression: Patient presenting today where she underwent lap nick for biliary colic found to have chronic cholecystitis as well as choledocholithiasis with distal CBD stones found during her intraoperative cholangiogram. Currently, she is
recovering well from her recent lap nick and would benefit from an ERCP with stone extraction for further management of her choledocholithiasis.
S/p ERCP 09/14/25: Mildly difficult cannulation over PD wire, choledocholithiasis was found managed with biliary sphincterotomy and stone extraction, sludge and stones removed
Still with occasional right sided discomfort although to be expected given her recent lap nick / incisional tenderness without any epigastric pain or other concerning symptoms after her recent ERCP. Labs still pending however no other concern for
PEP and would continue to advance diet as tolerated.
Recommendations:
- Tolerating CLD, may advance diet as tolerated
- Okay from GI standpoint to be discharged if tolerating diet
- Repeat LFTs down-trending with T Bili 0.7 -> 0.3
- Pain control and antiemetics as needed
- Rest of care as per primary team
Discussed with surgery this AM. GI will sign-off, please call with any questions or concerns. Please call with any questions or concerns.
Subjective
Subjective
Date of Service: September 15, 2025
- S/p ERCP 09/14/25: Mildly difficult cannulation over PD wire, choledocholithiasis was found managed with biliary sphincterotomy and stone extraction, sludge and stones removed
- Otherwise, no acute events overnight
Feeling well this morning, still with ongoing RUQ discomfort but denies any worsening pain or epigastric abd discomfort after ERCP. Tolerating CLD and hoping to have more solid food. No other nausea/vomiting or other fevers/chills.
Objective
Data Reviewed
Laboratory Data:
Laboratory Results
Total Bilirubin 0.7 mg/dl (0.2-1.3) 09/14/25 05:42
AST 382 U/L (14-36) H 09/14/25 05:42
ALT 315 U/L (0-35) H 09/14/25 05:42
Alkaline Phosphatase 105 U/L (38-126) 09/14/25 05:42
Vital Signs and I&O:
Vital Signs
Temp Pulse Resp BP Pulse Ox
99.0 F 66 16 101/68 96
09/15/25 03:49 09/15/25 03:49 09/15/25 03:49 09/15/25 03:49 09/15/25 03:49
I&O
09/13/25 09/14/25 09/15/25
06:59 06:59 06:59
Intake Total 1839 2820 / 282
Balance 1839 2820 / 2820
Physical Exam
Physical Exam
HEENT: Anicteric and Moist mucous membranes
Pulmonary: Other (Normal WOB on room air)
GI: Soft, Non Distended and Tender (Mild TTP over RUQ over incisions; no epigastric abdominal pain or involuntary guarding or rebound tenderness)
Extremities: No Edema and Warm
Neuro: Non Focal
[2025-09-15 07:00] VITALS: BP 107/59
[2025-09-15 08:00] LABS: Hematocrit 32.6 % (37.0-47.0); Hemoglobin 11.0 g/dL (12.0-16.0); Mean Corp Hgb Conc. 33.7 g/dL (33.0-37.0); Mean Corpuscular Volume 87.2 fL (81.0-99.0); Platelet Count 200 10^3/uL (130-400); Red Cell Dist. Width 12.5 % (11.5-14.5)
[2025-09-15 08:12] LABS: ALT (SGPT) 232 U/L (0-35); AST (SGOT) 127 U/L (14-36); Albumin 3.3 g/dl (3.5-5.0); Alkaline Phosphatase 100 U/L (38-126); Blood Urea Nitrogen 8 mg/dl (7-17); Calcium 8.2 mg/dl (8.4-10.2); Carbon Dioxide 28 mmol/L (22-30); Chloride 108 mmol/L (98-107); Estimated Creatinine Clearance 120 ml/min; Glucose 84 mg/dl (70-99); Potassium 4.0 mmol/L (3.5-5.1); Sodium 137 mmol/L (135-145); Total Protein 6.0 g/dl (6.3-8.2); eGFR > 60.00
[2025-09-15] MEDS: PROTONIX 40 MG PO (08:25)
--- NOTE | 2025-09-15 10:24 | CM ---
CM reviewed medical records . Plan for discharge to home when tolerating diet.
CM will remain available as needed.
PLAN: Home no needs.
[2025-09-15 11:00] VITALS: BP 102/64
--- NOTE | 2025-09-15 11:00 | W.PN.GS2 ---
Today's Communication / Plan
-
Dispo planning
Assessment / Plan
-
This is a 44-year-old female postoperative day 2 from an elective laparoscopic cholecystectomy for biliary colic found to have chronic cholecystitis and choledocholithiasis on IOC. Now postprocedure day #1 from an ERCP and successful removal of
choledocholithiasis.
Afebrile, vital signs stable. Exam reassuring.
LFTs slightly elevated as expected, bilirubin remains normal.
DC home today
Time Spent
Total Time Spent with Patient (in minutes): 20
Subjective Data
-
Date of Service: September 15, 2025
Interval Events:
No acute events overnight. Slept well. Pain Controlled. Denies Nausea/Vomiting, +bowel function. Tolerating diet.
Objective Data
-
Intake and Output
09/14/25 09/15/25 09/16/25
06:59 06:59 06:59
Intake Total 1840 / 1840 2820 / 2820 240 / 240
Balance 1840 / 1840 2820 / 2820 240 / 240
Intake:
Oral fluids 240 / 240 1920 / 1920 240 / 240
IV fluids (Total) 1600 / 1600 900 / 900
Normosol 200 / 200
Other:
Number of approximated MODERATE 2 3
amounts of urine
Vital Signs
Temp Pulse Resp BP Pulse Ox
98.1 F 55 14 107/59 97
09/15/25 07:00 09/15/25 07:00 09/15/25 07:00 09/15/25 07:00 09/15/25 07:00
Lab Results
09/15/25 06:49
09/15/25 06:49
Calcium 8.2 mg/dl (8.4-10.2) L 09/15/25 06:49
Total Bilirubin 0.3 mg/dl (0.2-1.3) 09/15/25 06:49
AST 127 U/L (14-36) H 09/15/25 06:49
ALT 232 U/L (0-35) H 09/15/25 06:49
Alkaline Phosphatase 100 U/L (38-126) 09/15/25 06:49
Total Protein 6.0 g/dl (6.3-8.2) L 09/15/25 06:49
Albumin 3.3 g/dl (3.5-5.0) L 09/15/25 06:49
Physical Exam
-
GENERAL/NEURO: Awake, Alert, no distress
CHEST: Unlabored breathing on RA
ABDOMEN: Soft, Non-Tender, Non-Distended, incisions clean dry and intact.
Patient has a vivar catheter: No
Patient has a central line: No
--- NOTE | 2025-09-16 16:05 | W.DS.TRANS ---
Addendum entered and electronically signed by ANN Tran 09/16/25 16:09:
dictated #[id number]
Original Note:
DC Summary - Client Service Manager
-
Discharge Instructions:
Sleep Apnea Risk Low
Discharge Diagnosis/Procedures Chronic cholecystitis, choledocholithiasis.
Laparoscopic cholecystectomy with cholangiogram,
ERCP.
Diet No restrictions
Activity No strenuous activity
Driving Restrictions As prior to admission
Bathing Restrictions OK to Shower
Instructions:
Stand-Alone Forms:
Changes to Home Medications: No
Discharge Medications:
DC Medications w/original date entered in [employer]
escitalopram oxalate 20 mg tablet 20 mg PO HS Mental Health/Anxiety 03/22/22
acetaminophen 325 mg tablet 650 mg (2 x 325 mg) PO Q6HPRN PRN mild pain #14 tabs 09/13/25
ibuprofen 600 mg tablet 600 mg PO Q6H PRN pain #14 tabs 09/13/25
oxycodone 5 mg tablet 5 mg PO Q6HPRN PRN breakthrough/severe pain #8 tabs 09/13/25
Home Medication Changes
Pending Results: No
== END 2025-09-15 13:11 | disposition home or self-care (01) ==
LOC: SDS 05:52
PROVIDERS: Nurse Practitioner Adult Health; ATTENDING PHYSICIAN Surgery; CONSULT PHYSICIAN Student in an Organized Health Care Education/Training Program
DX: K80.10 Calculus of gallbladder with chronic cholecystitis without obstruction (principal)
CPT/HCPCS: 47563; 74300; 74330; 76000; 80053; 85027; 88304; A4300; C1769